=== PATIENT | female | born 1995 | race African-American/Black ===

== ENCOUNTER 2023-07-29 19:06 | Emergency (ER) | payer MEDICAID, OTHER ==
[~2023-07-29] VITALS: Ht 161.3 cm; Wt 86.2 kg
[~2023-07-29 19:06] MED LIST: ARIP20TA1; CLON0.1T79 PO; LAM200 PO; ONDA4TAB PO; TRAZ-343 PO
[2023-07-29 19:28] VITALS: BP 130/90; PULSE 67; RESP 20; TEMP 97.8; O2SAT 96
[2023-07-29] MEDS ORDERED: ALBUTEROL 0.083% 2.5 MG/3 ML NEBU INH ONE ×2 (20:35→21:14)
[2023-07-29] MEDS ORDERED: ALBUTEROL 0.083% 2.5 MG/3 ML NEBU INH STA (21:13)
[2023-07-29 22:14] VITALS: PULSE 111; RESP 18; O2SAT 96
[2023-07-29] MEDS ORDERED: ALBU0.0912 IH (22:20)
[2023-07-29] MEDS ORDERED: BENZ150C2 PO (22:20)
[2023-07-29] MEDS ORDERED: PRED20TA5 PO (22:20)
[2023-07-29] MEDS ORDERED: AZIT250T4 PO (22:20)
[2023-07-29 23:07] LABS: FLU A ANTIGEN negative (NEGATIVE); FLU B ANTIGEN POSITIVE (NEGATIVE)
== END 2023-07-29 23:21 | disposition home or self-care (01) ==
LOC: MED 19:06
DX: J20.9 Acute bronchitis, unspecified (principal); Z20.822 Contact with and (suspected) exposure to COVID-19; R03.0 Elevated blood-pressure reading, without diagnosis of hypertension; Z79.899 Other long term (current) drug therapy
CPT/HCPCS: 87426; 87804; 94640; 99283; J7613